=== PATIENT | male | born 1950 | race Caucasian/White ===

== ENCOUNTER 2017-10-11 03:08 | Emergency (ER) | payer MEDICARE, OTHER ==
[~2017-10-11] VITALS: Ht 177.8 cm; Wt 77.2 kg
[2017-10-11 03:11] VITALS: BP 176/96
[2017-10-11] MEDS ORDERED: IBUP-1986 PO (04:03)
[2017-10-11] MEDS ORDERED: AMOX500C2 PO (04:03)
[2017-10-11] MEDS ORDERED: HYDR-569 PO (04:03)
[2017-10-11] MEDS ORDERED: amoxicillin 250mg capsule PO ONE (04:05)
[2017-10-11] MEDS ORDERED: HYDROcodone/acetaminophen 10/325mg tab PO ONE (04:05)
[2017-10-11] MEDS ORDERED: ibuprofen tablet 400 MG TABLET PO ONE (04:05)
== END 2017-10-11 04:18 | disposition home or self-care (01) ==
LOC: ER 03:09
DX: L03.211 Cellulitis of face (principal); K08.89 Other specified disorders of teeth and supporting structures; Z87.442 Personal history of urinary calculi; Z98.890 Other specified postprocedural states
CPT/HCPCS: 99284